=== PATIENT | female | born 1960 | race African-American/Black ===

== ENCOUNTER 2016-06-27 10:52 | Emergency (ER) | payer BC ==
[~2016-06-27] VITALS: Ht 165.1 cm; Wt 72.5 kg
[~2016-06-27 10:52] MED LIST: [UNRECOGNIZED DRUG - OTHER]
[2016-06-27 11:50] LABS: BASOPHILS % 1.2 % (0.0-2.0); EOSINOPHILS % 1.7 % (0.0-5.0); HEMATOCRIT. 40.1 % (36.0-48.0); HEMOGLOBIN. 13.7 g/dL (12.0-16.0); LYMPHOCYTES % 45.2 % (20.0-50.0); MEAN CORPUSCULAR HEMOGLOBIN 31.9 pg (28.0-32.0); MEAN CORPUSCULAR HGB CONC 34.1 g/dL (31.0-37.0); MEAN CORPUSCULAR VOLUME 93.5 fL (81.0-99.0); MEAN PLATELET VOLUME 8.2 fl (7.4-10.4); MONOCYTES % 9.3 % (2.0-8.0); NEUTROPHILS % 42.6 % (40.0-76.0); PLATELET 189 x1000/uL (130-400); RED BLOOD CELL COUNT 4.28 mill/uL (4.2-5.4); RED CELL DISTRIBUTION WIDTH 12.5 % (11.6-14.6); WHITE BLOOD COUNT 3.7 x1000/uL (4.5-11.0)
[2016-06-27 11:58] LABS: D-DIMER < 0.19 mg/L FEU (<0.50); INR 1.1; PARTIAL THROMBOPLASTIN TIME 28.2 sec (24.0-34.0); PROTHROMBIN TIME 11.3 sec
[2016-06-27 12:04] LABS: ALANINE AMINOTRANSFERASE 14 IU/L (13-61); ALBUMIN 4.2 g/dL (3.4-5.0); ANION GAP 13; CALCIUM 9.6 mg/dL (8.5-10.1); CARBON DIOXIDE 28 mEq/L (21-32); CHLORIDE 106 mEq/L (98-107); INDEX HEMOLYSI 1 (1-3); INDEX ICTERIC 1 (1-4); INDEX LIPEMIC 1 (1-3); NT PRO B-TYPE NATRIURETIC PEP 72 pg/mL (5-125); TROPONIN I < 0.02 ng/mL (0.00-0.04); UREA NITROGEN BLOOD 8 mg/dL (7-21); eGFR > 60 mL/min (>60)
[2016-06-27] MEDS: MORPHINE SULFATE 4 MG/ML CPJ (NOT FOR IM USE) IV ONE ×2 (12:12→12:43)
[2016-06-27] MEDS ORDERED: IBUPROFEN 800MG TABLET PO ONE (12:30)
[2016-06-27 12:43] VITALS: BP 135/95
== END 2016-06-27 13:43 | disposition home or self-care (01) ==
LOC: ER 13:11
DX: M94.0 Chondrocostal junction syndrome [Tietze] (principal); I10 Essential (primary) hypertension
CPT/HCPCS: 36415; 71010; 80053; 83880; 84484; 85025; 85379; 85610; 85730; 93005; 99285; Z7610; J2270

== ENCOUNTER 2017-06-27 19:09 | Emergency (ER) | payer BC ==
[~2017-06-27] VITALS: Ht 165.1 cm; Wt 71.0 kg
[2017-06-28 00:38] VITALS: BP 173/91
== END 2017-06-28 00:48 | disposition home or self-care (01) ==
LOC: ER 21:13
DX: R22.0 Localized swelling, mass and lump, head (principal); I10 Essential (primary) hypertension
CPT/HCPCS: 99282

== ENCOUNTER 2020-09-01 06:29 | Emergency (ER) | payer BC ==
[~2020-09-01] VITALS: Ht 165.1 cm; Wt 76.0 kg
[2020-09-01 06:53] VITALS: BP 157/98
[2020-09-01] MEDS ORDERED: FLUORESCEIN SODIUM 1MG/STRIP RIGHTEYE ONE (07:00)
[2020-09-01] MEDS ORDERED: TETRACAINE 0.5% OPHTH DROPS 4ML RIGHTEYE ONE (07:00)
[2020-09-01] MEDS ORDERED: OFLO5DRO3 RIGHTEYE (07:08)
== END 2020-09-01 07:24 | disposition home or self-care (01) ==
LOC: ER 06:29
DX: H10.9 Unspecified conjunctivitis (principal); I10 Essential (primary) hypertension; E78.00 Pure hypercholesterolemia, unspecified
CPT/HCPCS: 99283

== ENCOUNTER 2023-08-19 22:18 | Inpatient (IN) | payer BC ==
[~2023-08-19] VITALS: Ht 165.1 cm; Wt 72.6 kg
[~2023-08-19 22:18] MED LIST changes: +OCUFLX RIGHTEYE
[2023-08-19] MEDS: SODIUM CHLORIDE 0.9% 1,000 ML IV ONE (23:11)
[2023-08-19 23:12] LABS: CLARITY URINE CLEAR (CLEAR); COLOR URINE YELLOW (YELLOW); GLUCOSE URINE NEGATIVE (NEGATIVE); KETONES URINE TRACE (NEGATIVE); LEUKOCYTE ESTERASE URINE TRACE (NEGATIVE); NITRITE URINE NEGATIVE (NEGATIVE); OCCULT BLOOD URINE NEGATIVE (NEGATIVE); PH URINE 6.5 (4.5-8.0); PROTEIN URINE TRACE (NEGATIVE); SPECIFIC GRAVITY URINE 1.027 (1.005-1.030)
[2023-08-19 23:20] LABS: *AMPHETAMINES SCREEN URINE NEGATIVE (NEGATIVE); *BARBITURATES SCREEN URINE NEGATIVE (NEGATIVE); *BENZODIAZEPINES SCREEN URINE NEGATIVE (NEGATIVE); *COCAINE SCREEN URINE NEGATIVE (NEGATIVE); CANNABINOID URINE SCREEN NEGATIVE (NEGATIVE); ECSTASY MDMA SCREEN URINE NEGATIVE (NEGATIVE); METHADONE URINE SCREEN NEGATIVE (NEGATIVE); OPIATES URINE SCREEN NEGATIVE (NEGATIVE); PHENCYCLIDINE URINE SCREEN NEGATIVE (NEGATIVE)
[2023-08-19 23:26] LABS: BACTERIA URINE 1+; SQUAMOUS EPITHELIAL CELL URINE FEW /lpf (RARE/1+)
[2023-08-19 23:27] LABS: RBC URINE 0-2 /hpf (0-2); WBC URINE 0-2 /hpf (0-2)
[2023-08-19 23:29] LABS: CHLORIDE 105 mEq/L (98-107); POTASSIUM 2.9 mEq/L (3.5-5.1); SODIUM 141 mEq/L (136-145)
[2023-08-19 23:30] LABS: CARBON DIOXIDE 28 mEq/L (21-32)
[2023-08-19 23:33] LABS: D-DIMER < 0.19 mg/L FEU (<0.50); PARTIAL THROMBOPLASTIN TIME 27.1 sec (23.4-31.0); PROTHROMBIN TIME 11.3 sec (9.6-11.0)
[2023-08-19 23:35] LABS: BASOPHILS % 0.7 % (0.0-2.0); EOSINOPHILS % 1.9 % (0.0-5.0); GLUCOSE 193 mg/dL (70-105); HEMATOCRIT. 37.3 % (36.0-48.0); HEMOGLOBIN. 12.7 g/dL (12.0-16.0); LYMPHOCYTES % 44.2 % (20.0-50.0); MEAN CORPUSCULAR HGB CONC 34.1 g/dL (31.0-37.0); MEAN CORPUSCULAR VOLUME 96.8 fL (81.0-99.0); MEAN PLATELET VOLUME 8.6 fl (7.4-10.4); MONOCYTES % 7.8 % (2.0-8.0); NEUTROPHILS % 45.4 % (40.0-76.0); PLATELET 211 x1000/uL (130-400); RED BLOOD CELL COUNT 3.85 mill/uL (4.2-5.4); RED CELL DISTRIBUTION WIDTH 12.6 % (11.6-14.6); UREA NITROGEN BLOOD 11 mg/dL (9-23)
[2023-08-19 23:45] LABS: ETHANOL BLOOD < 10 mg/dL (<10); TROPONIN I HIGH SENSITIVITY < 4 ng/L (3.0-34)
[2023-08-20] MEDS: POTASSIUM CHLORIDE 20MEQ/PACKET PO NR (01:01)
[2023-08-20 02:39] LABS: TROPONIN I HIGH SENSITIVITY 14 ng/L (3.0-34)
[2023-08-20] MEDS: ASPIRIN 325MG EC TABLET PO NR (03:21)
[2023-08-20 05:00] VITALS: BP 134/78; PULSE 114; RESP 20; TEMP 97.5
[2023-08-20 05:15] VITALS: BP 134/78; PULSE 114; RESP 20; TEMP 97.5
[2023-08-20] MEDS ORDERED: LOVA20TA2 PO (06:21)
[2023-08-20] MEDS ORDERED: BENA1TAB19 MT (06:21)
[2023-08-20 08:00] VITALS: BP 136/75; PULSE 97; RESP 18; TEMP 97.6
[2023-08-20] MEDS: PANTOPRAZOLE 40MG DR TABLET PO SCH (08:05)
[2023-08-20] MEDS: POTASSIUM CHLORIDE 20MEQ TABLET SR PO NR (08:05)
[2023-08-20] MEDS: ENOXAPARIN 40MG/0.4ML SYR SUBCUT SCH (08:24)
[2023-08-20] MEDS: CARVEDILOL 12.5MG TABLET PO SCH (08:24)
[2023-08-20 09:12] LABS: BASOPHILS % 0.4 % (0.0-2.0); EOSINOPHILS % 0.1 % (0.0-5.0); HEMATOCRIT. 39.1 % (36.0-48.0); LYMPHOCYTES % 23.8 % (20.0-50.0); MEAN CORPUSCULAR HEMOGLOBIN 32.4 pg (28.0-32.0); MEAN CORPUSCULAR HGB CONC 33.1 g/dL (31.0-37.0); MEAN CORPUSCULAR VOLUME 97.7 fL (81.0-99.0); MONOCYTES % 5.5 % (2.0-8.0); NEUTROPHILS % 70.2 % (40.0-76.0); PLATELET 204 x1000/uL (130-400); RED BLOOD CELL COUNT 4.01 mill/uL (4.2-5.4); RED CELL DISTRIBUTION WIDTH 12.7 % (11.6-14.6); WHITE BLOOD COUNT 5.3 x1000/uL (4.5-11.0)
[2023-08-20 09:24] LABS: CHLORIDE 107 mEq/L (98-107); POTASSIUM 3.8 mEq/L (3.5-5.1); SODIUM 140 mEq/L (136-145)
[2023-08-20 09:25] LABS: CALCIUM 9.1 mg/dL (8.7-10.4); CARBON DIOXIDE 27 mEq/L (21-32)
[2023-08-20 09:29] LABS: TROPONIN I HIGH SENSITIVITY 12 ng/L (3.0-34)
[2023-08-20 09:30] LABS: GLUCOSE 125 mg/dL (70-105); TRIGLYCERIDE 41 mg/dL (0-150); UREA NITROGEN BLOOD 7 mg/dL (9-23)
[2023-08-20 09:31] LABS: LDL CHOLESTEROL 76 mg/dL (5-100)
[2023-08-20 09:32] LABS: CHOLESTEROL 162 mg/dL (<200); HDL CHOLESTEROL 76 mg/dL (>65)
[2023-08-20 10:41] LABS: T4 FREE 0.88 ng/dL (0.89-1.76)
[2023-08-20 10:42] LABS: THYROID STIMULATING HORMONE 1.16 uIU/mL (0.55-4.78)
[2023-08-20 12:00] VITALS: BP 136/78; PULSE 91; RESP 18; TEMP 98.7
[2023-08-20 16:00] VITALS: BP 109/66; PULSE 78; RESP 18; TEMP 97.6
[2023-08-20 16:07] LABS: CREATININE 0.7 mg/dL (0.6-1.0)
[2023-08-20 16:25] LABS: TROPONIN I HIGH SENSITIVITY 13 ng/L (3.0-34)
[2023-08-20 20:00] VITALS: BP 126/63; PULSE 80; RESP 19; TEMP 97.3
[2023-08-20] MEDS: ATORVASTATIN CALCIUM 40MG TABLET PO SCH (21:04)
[2023-08-21] VITALS: BP 99/53; PULSE 81; RESP 19; TEMP 97.3
[2023-08-21 04:00] VITALS: BP 120/62; PULSE 71; RESP 20; TEMP 97.3
[2023-08-21 08:00] VITALS: BP 111/63; PULSE 72; RESP 19; TEMP 96.9
[2023-08-21 12:00] VITALS: BP 117/59; PULSE 81; RESP 18; TEMP 98.1
[2023-08-21] MEDS ORDERED: COR12 PO (12:19)
[2023-08-21 12:42] VITALS: BP 117/59; PULSE 81; TEMP 98.1; O2SAT 99
[2023-08-22] MEDS ORDERED: FAMOTIDINE 20MG TABLET PO SCH (09:00)
== END 2023-08-21 13:30 | disposition home or self-care (01) | DRG 641 ==
LOC: ER 22:18 → 8WST 08-20 03:21 → EDBEDREQ 08-20 03:22
PROVIDERS: ADMIT Internal Medicine; ATTEND Internal Medicine
DX: E87.6 Hypokalemia (principal); I16.0 Hypertensive urgency; E78.00 Pure hypercholesterolemia, unspecified; I10 Essential (primary) hypertension; Z79.899 Other long term (current) drug therapy
CPT/HCPCS: 36415; 71045; 80048; 80061; 80305; 80320; 81003; 83735; 83880; 84439; 84443; 84484; 85025; 85379; 93005; 93306; J1650; J7030; G0480